=== PATIENT | male | born 1995 | race Caucasian/White ===

== ENCOUNTER 2018-08-28 23:13 | Emergency (ER) | payer OTHER ==
[~2018-08-28] VITALS: Ht 170.2 cm; Wt 77.3 kg
[2018-08-28 23:13] VITALS: BP 187/95
[2018-08-28] MEDS ORDERED: diphenhydrAMINE INJ 50MG/ML VIAL (J1200) IV STA (23:26)
[2018-08-28] MEDS ORDERED: dexameTHASONE 20 MG/5 ML VIAL (J1100) IV ONE (23:30)
== END 2018-08-28 23:58 | disposition home or self-care (01) ==
LOC: M ED 23:13
DX: R21 Rash and other nonspecific skin eruption (principal); T78.40XA Allergy, unspecified, initial encounter; X58.XXXA Exposure to other specified factors, initial encounter; Y92.89 Other specified places as the place of occurrence of the external cause; F41.1 Generalized anxiety disorder
CPT/HCPCS: 96374; 96375; 99284; J1100; J1200